=== PATIENT | female | born 1960 | race Caucasian/White ===

== ENCOUNTER 2018-08-15 07:02 | Day surgery (SDC) | payer MEDICARE ==
[~2018-08-15] VITALS: Ht 160 cm; Wt 54.4 kg
[~2018-08-15 07:02] MED LIST: ADDERALL20 MG PO; AIMOVIG; AMITIZA24 MCG PO; AMITIZA8 MCG PO; BONIVA150 M1 PO; DOCQLACE100 MG; LIPITOR40 M1 PO; LOPID600 MG PO; PAROXETINE20 MG PO; PRAMIPEXOLE0.5 MG PO; SUMATRIPTA6 MG/0.5 M IJ; SUMATRIPTAN25 MG PO; TOPAMAX100 M1 PO; ULTRAM50 M1 PO; ZOLMITRIPTAN5 MG; [UNRECOGNIZED DRUG - OTHER] PO
[2018-08-15] MEDS ORDERED: PERCOCET 10/31 COMBO PO (12:12)
[2018-08-15 12:34] VITALS: BP 127/79
== END 2018-08-15 13:00 | disposition home or self-care (01) ==
LOC: ORM 07:02
PROVIDERS: ATTEND Orthopaedic Surgery
PROC: 0LQ24ZZ Repair Left Shoulder Tendon, Percutaneous Endoscopic Approach (ICD-10-PCS; principal; 2018-08-15)
PROC: 0RHK44Z Insertion of Internal Fixation Device into Left Shoulder Joint, Percutaneous Endoscopic Approach (ICD-10-PCS; 2018-08-15)
PROC: 0LS24ZZ Reposition Left Shoulder Tendon, Percutaneous Endoscopic Approach (ICD-10-PCS; 2018-08-15)
PROC: 0RNK4ZZ Release Left Shoulder Joint, Percutaneous Endoscopic Approach (ICD-10-PCS; 2018-08-15)
DX: M75.112 Incomplete rotator cuff tear or rupture of left shoulder, not specified as traumatic (principal); S43.432A Superior glenoid labrum lesion of left shoulder, initial encounter; S46.212A Strain of muscle, fascia and tendon of other parts of biceps, left arm, initial encounter; M75.52 Bursitis of left shoulder; M75.42 Impingement syndrome of left shoulder; M94.212 Chondromalacia, left shoulder; X58.XXXA Exposure to other specified factors, initial encounter; Z87.891 Personal history of nicotine dependence

== ENCOUNTER 2019-07-22 | Observation (INO) | payer MEDICARE ==
[~2019-07-22] MED LIST changes: +PERCOCET 10/31 COMBO PO
--- NOTE | 2019-07-22 13:24 | NUR ---
PT TO ROOM VIA WHEELCHAIR.
[2019-07-22] MEDS ORDERED: PAXIL40 MG (13:30)
[2019-07-22] MEDS ORDERED: AIMOVIG140 MG/ML SC (13:30)
[2019-07-22] MEDS ORDERED: SUMATRIPTAN25 MG PO (13:31)
[2019-07-22] MEDS ORDERED: TOPAMAX100 MG PO (13:31)
--- NOTE | 2019-07-22 14:03 | NUR ---
MEDICATED PT FOR NAUSEA AND INITIATED IVF BOLUS. PT DECLINED MORPHINE "IT MAKES ME REALLY SICK TO MY STOMACH". EDP UPDATED ADN NEW ORDERS RECEIVED.
[2019-07-22 14:15] LABS: HEMATOCRIT 34.7 % (37.0-47.0); HEMOGLOBIN 13.7 g/dl (12.0-16.0); IMMATURE GRANULOCYTES 0.5 % (0.0-5.0); MEAN CELL VOLUME 92.5 fL CALC (80.0-100.0); MEAN CORPUSCULAR HGB 36.5 pG CALC (26.0-32.0); MEAN CORPUSCULAR HGB CONC 39.5 g/L CALC (32.0-36.0); NEUT# 10.97 thou/uL (2.00-7.15); RED BLOOD COUNT 3.75 mill/uL (4.20-5.60); RED CELL DISTRI WIDTH 15.2 % (11.5-15.5)
--- NOTE | 2019-07-22 14:25 | NUR ---
MEDICATED FOR PAIN 8/10 LUQ RADIATING INTO LLQ. AT BEDSIDE. VSS. UPDATED ON POC.
[2019-07-22 14:30] LABS: URINE BILIRUBIN - DIPSTICK NEGATIVE (NEGATIVE); URINE BLOOD DIPSTICK NEGATIVE (NEGATIVE); URINE COLOR YELLOW; URINE GLUCOSE - DIPSTICK NEGATIVE (NEGATIVE); URINE KETONE NEGATIVE (NEGATIVE); URINE LEUK ESTERASE NEGATIVE (NEGATIVE); URINE NITRITE - DIPSTICK NEGATIVE (Negative); URINE PH 6.5 (4.5-8.0); URINE PROTEIN - DIPSTICK NEGATIVE (NEG-TRACE); URINE SPECIFIC GRAVITY 1.015; URINE UROBILINOGEN - DIPSTICK 0.2 E.U./dL (0.2)
--- NOTE | 2019-07-22 15:11 | NUR ---
PT RESTING RT SIDE LYING IN NO DISTRESS. PT STATES PAIN IS "MUCH BETTER" 08/11.DENIES NAUSEA AT THIS TIME. PT UPDATED ON WAIT TIME FOR RESULTS.
[2019-07-22 15:24] LABS: ALBUMIN 5.1 g/dL (3.2-5.0); ANION GAP 17 (6-22 (CALC)); BUN 16 mg/dL (7-17); BUN/CREATININE RATIO 18 (12-20 (CALC)); CARBON DIOXIDE 21 mmol/l (22-30); CHLORIDE 104 mmol/l (95-108); CREATININE 0.9 mg/dL (0.5-1.0); GFR > 60 ML/MIN (>=60 (CALC)); GFR FOR AFR.AMER. > 60 ML/MIN (>=60 (CALC)); LIPASE 321 u/l (23-300); POTASSIUM 4.6 mmol/l (3.5-5.1); SODIUM 138 mmol/l (137-146); TOTAL PROTEIN 9.2 g/dL (6.3-8.2)
[2019-07-22 15:25] LABS: ALKALINE PHOSPHATASE 105 u/l (38-126); BILIRUBIN, TOTAL 1.3 mg/dL (0.0-1.4); SGOT/AST 73 u/l (14-36)
--- NOTE | 2019-07-22 16:15 | NUR ---
PATIENT RESTING AWAITNG LAB AND RADIOLOGY RESULTS. PATIENT RATES PAIN 4 ON 0-10 SCALE
--- NOTE | 2019-07-22 17:15 | NUR ---
PATIENT RESTING AWAITNG ROOM ASSIGNMENT PATIENT RATES ABD PAIN 3 ON 0-10 SCALE
--- NOTE | 2019-07-22 18:31 | NUR ---
REPORT CALLED TO MED SURG
--- NOTE | 2019-07-22 19:03 | NUR ---
TO MS VIA W/C BY ANTONY
[2019-07-22 19:05] VITALS: BP 102/72
[2019-07-23 04:45] LABS: HEMATOCRIT 31.1 % (37.0-47.0); IMMATURE GRANULOCYTES 0.3 % (0.0-5.0); MEAN CELL VOLUME 93.4 fL CALC (80.0-100.0); MEAN CORPUSCULAR HGB 34.5 pG CALC (26.0-32.0); NEUT# 5.15 thou/uL (2.00-7.15); RED BLOOD COUNT 3.33 mill/uL (4.20-5.60); RED CELL DISTRI WIDTH 15.7 % (11.5-15.5)
[2019-07-23 04:47] LABS: HEMOGLOBIN 11.5 g/dl (12.0-16.0)
[2019-07-23 04:50] VITALS: BP 124/73
[2019-07-23 05:06] LABS: ANION GAP 12 (6-22 (CALC)); BUN 15 mg/dL (7-17); BUN/CREATININE RATIO 14 (12-20 (CALC)); CARBON DIOXIDE 21 mmol/l (22-30); CHLORIDE 106 mmol/l (95-108); CREATININE 1.1 mg/dL (0.5-1.0); GFR 51 ML/MIN (>=60 (CALC)); GFR FOR AFR.AMER. > 60 ML/MIN (>=60 (CALC)); MAGNESIUM 1.7 mg/dL (1.6-2.3); SODIUM 136 mmol/l (137-146)
[2019-07-23 05:12] LABS: POTASSIUM 3.3 mmol/l (3.5-5.1)
[2019-07-23 07:50] VITALS: BP 113/78
--- NOTE | 2019-07-23 07:50 | NUR ---
PT SITTING ON BSC, NO SIGNS OF DISTRESS NOTED,RESP EVEN AND UNLABORED. PT ALERT AND ORIENTED X3, DISCUSSED POC, PT STATES SHE HAS DIARRHEA AFTER HER COLONOSCOPY; DENIES N/V BUT STATES SHE IS AFRAID TO EAT DUE TO FREQUENT STOOLS. OFFERED PT BREAKFAST TRAY, PT STATES SHE WILL TRY. ASSESSMENT COMPLETED, IVF INFUSING. CALL LIGHT IN REACH,CONTINUE TO MONITOR.
--- NOTE | 2019-07-23 09:29 | NUR ---
PT SITTING IN BED, NO SIGNS OF DISTRESS NOTED, RESP EVEN AND UNLABORED. PT MEDICATED PER MAR. INSTRUCTED TO CALL FOR ASSISTANCE, VERBALIZED UNDERSTANDING. CALL LIGHT IN REACH,CONTINUE TO MONITOR.
--- NOTE | 2019-07-23 12:00 | NUR ---
PT SITTING ON SIDE OF BED EATING LUNCH, NO SIGNS OF DISTRESS NOTED, RESP EVEN AND UNLABORED. CALL LIGHT IN REACH,CONTINUE TO MONITOR.
[2019-07-23] MEDS ORDERED: CIPROFLOXACN500 MG PO (13:37)
[2019-07-23] MEDS ORDERED: METRONIDAZOL500 MG PO (13:38)
[2019-07-23] MEDS ORDERED: PERCOCET 5/325M1 TAB PO (13:53)
--- NOTE | 2019-07-23 14:45 | NUR ---
DISCUSSED PLANS OF DISCHARGE, PT AGREES. INFORMED PT OF POTASSIUM 40MEQ PO, PT VERBALIZED UNDERSTANDING. STOOL SAMPLE OBTAINED. CALL LIGHT IN REACH,CONTINUE TO MONITOR.
[2019-07-23 15:32] VITALS: BP 123/74
[2019-07-23 16:19] LABS: C. DIFFICILE TOXIN A&B NEGATIVE (NEGATIVE)
--- NOTE | 2019-07-23 16:31 | NUR ---
DISCUSSED DISCHARGE INFORMATION AND EDUCATION. PRESCRIPTION PROVIDED. IV SITE REMOVED, CATHETER INTACT. PT GETTING DRESSED INSTRUCTED TO CALL WHEN READY.
--- NOTE | 2019-07-23 16:42 | NUR ---
Discharge instructions given. Patient verbalizes understanding of same. Discharged in stable condition via Wheelchair to Home with spouse. All belongings sent with pt.
== END 2019-07-23 16:34 | disposition home or self-care (01) ==
PROVIDERS: Family Medicine; Surgery; ADMIT Internal Medicine
DX: K50.10 Crohn's disease of large intestine without complications (principal); K57.90 Diverticulosis of intestine, part unspecified, without perforation or abscess without bleeding; Z98.890 Other specified postprocedural states
CPT/HCPCS: G0378; Q9967